=== PATIENT | male | born 1945 | race Caucasian/White ===

== ENCOUNTER → 2018-01-13 14:38 | Oncology outpatient (ONC) | payer MEDICARE, OTHER, SELFPAY ==
[2018-01-13 15:29] VITALS: BP 174/67; PULSE 52; RESP 18; TEMP 36.5; O2SAT 96
--- NOTE | 2018-01-14 13:32 | ONC.GENERIC ---
Diagnosis (1) Chronic renal impairment Diagnosis: 01/14/18 13:42 Mr. Day is a very pleasant 72-year-old male from [place], [place]. He is accompanied today by his . He has been kindly referred by Dr. Soliman for formal triage of an abnormal serum free light chain profile. History of Present Illness History Of Present Illness: 01/14/18 13:45 This gentleman's present illness probably dates back to July of 2017, when the patient was found to have a right kidney stone. A local urologist did a cystoscopy and was able to remove the 6 mm stone. The patient had a unilateral stent in for about 2 weeks duration. At the time, the patient denied being on any vitamin C supplements. Following that procedure, he had some follow-up blood work, which showed persistent elevation of his serum creatinine. In retrospect, this gentleman had a creatinine level of 2.2 dating back to 12/03/2016. His creatinine peaked at 4.1 on 07/15/2017. His most recent level from 11/28/2017 was 2.9. According to the patient, the exact cause of his persistent renal insufficiency is not clearly understood at this time. 01/14/18 13:51 On 12/04/2017, the patient was seen formally by Dr. Soliman, a local streets and buildings decorator. A serum free light chain assay was procured, showing elevation of the kappa free light chains at 87.6, elevation of the lambda free light chains at 31.9 and elevation of the kappa/lambda ratio at 2.75. A urine immunoelectrophoresis detected a tiny amount of abnormal protein. The hemoglobin level was 12.0. MCV was 88. Iron saturation was normal at 23. Serum iron was normal at 86. A M spike was not seen on a serum protein electrophoresis. Home Medications and Allergies Home Medications Medication Instructions Recorded Confirmed Type aspirin 81 mg PO QDAY #90 tab 06/04/17 01/09/18 Rx fluocinonide 0.05 % TOPICAL SEE INSTRUCTIONS 06/04/17 01/09/18 Rx #180 gm hydrochlorothiazide 50 mg PO QDAY #90 tab 06/04/17 01/09/18 Rx levothyroxine 88 mcg PO QDAY@0600 #90 tab 06/04/17 01/09/18 Rx potassium chloride [Klor-Con M20] 20 meq PO Q DAY #360 tab 06/04/17 01/09/18 Rx simvastatin 20 mg PO QDAY #90 tab 06/04/17 01/09/18 Rx terazosin 5 mg PO QDAY #90 cap 06/04/17 01/09/18 Rx Glucose: Home Monitoring Kit kit BID #1 08/18/17 01/09/18 Rx nifedipine 60 mg PO BID #180 tab 08/18/17 01/09/18 Rx Test Strips - Freestyle str NA BID #300 10/16/17 01/09/18 Rx hydralazine 50 mg PO BID #0 11/18/17 01/09/18 History ranitidine HCl 150 mg PO QDAY #0 11/18/17 01/09/18 History insulin syringe-needle U-100 0.3 #100 each 01/01/18 01/09/18 Rx mL 31 gauge x 12/24 insulin glargine (U-100) 100 30 unit SUBCUT QDAY #2 syr 01/06/18 01/09/18 Rx unit/mL (3 mL) subcutaneous pen hydrocodone 5 mg-acetaminophen 325 See Label Instructions PO Q6H PRN 01/09/18 Rx mg tablet PRN #20 tab pen needle, diabetic 31 gauge x #30 each 01/09/18 Rx 1/4 prednisone 20 mg tablet 30 mg PO DAILY #10 tab 01/09/18 Rx Allergies Allergy/AdvReac Type Severity Reaction Status Date / Time oxycodone [OXYCODONE] Allergy Mild nightmares Unverified 01/09/18 13:32 Past History Past Medical History: This gentleman's past medical history is quite extensive, and includes anemia, bilateral hip replacements surgery, psoriasis, chronic renal insufficiency, diabetes since 1994, history of gout, hyperlipidemia, hypertension since age 18, prior kidney stone as noted above, lumbar stenosis, neuropathy, sleep apnea and prior partial thyroidectomy, causing acquired hypothyroidism, under treatment. There is also a prior history of a left lung nodule. Social History: Mr. Day is and is accompanied today by his Katie. All 3 of their adult children are . 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 Family History: Patient's mother at age 63 from smoking related lung cancer. His father had a heart attack at age 77. One brother and 1 sister survive. They both have diabetes. This gentleman's 3 adult children are all . His 42 and 44-year-old sons both of heart attacks. His daughter from seizure activity age 37. Review of Systems Review of Systems: 1. General. No recent change in weight or appetite. He denies any recent fever, chills or night sweats. 2. HEENT. Chronic diminution in hearing. He has bilateral hearing aids. No current visual complaints. 3. Lungs. No recent complaints of cough or dyspnea. 4. Heart. History of hypertension, for the past 54 years. 5. GI. No history of gallbladder disease, hepatitis or peptic ulcer disease. 6. Rheumatologic. Prior left hip replacement surgery x2. Previous right hip replacement surgery. History of gout. 7. Endocrine. Adult onset diabetes mellitus. Currently on 88 mcg of Synthroid per day for hypothyroidism. 8. . Urinary frequency (I drink a lot a water). 9. Scan. Unremarkable. 10. Neurologic. Chronic bilateral leg weakness, secondary to his lower spinal stenosis. Exam Vital Signs: Vital Signs - 24 hr 01/13/18 15:29 Temperature 97.7 F Pulse Rate 52 L Respiratory Rate 18 Blood Pressure 174/67 H Pulse Oximetry 96 Exam: Blood pressure 174/67. Temperature 97.7?. Pulse rate 52. O2 saturation on room air was 96%. Weight 231 lb. The pupils were equal and reactive to light. There was no scleral icterus. The oropharynx was clear. There was no direct percussible spinal tenderness. There was no palpable rib cage tenderness. Both lungs were clear to auscultation and percussion. No pathologic lymphadenopathy was noted today in the pre or postauricular, neck, chin, supraclavicular or axillary areas. No gynecomastia. Heart sounds were fine. His abdomen was soft and nontender in all 4 quadrants. No perceived hepatomegaly. Minimal pretibial edema. Skin examination was unremarkable. Impression At this time, I strongly suspect that this gentleman's abnormal serum free light chain profile is entirely secondary to his persistent/moderately severe renal insufficiency. While it can be difficult to interpret [place]/Lambda ratios between 1.65 and 3, in the context of renal insufficiency, further investigation with a 24 urine protein electrophoresis and urine immunofixation generally helps to guide interpretation. If both of the subsequent studies are normal, and the patient has no other symptoms suggestive of a plasma cell dyscrasia, then the increased ratio is likely to be due to the renal insufficiency. It is quite common to see both the kappa and lambda free light chains elevated simultaneously in the face of renal insufficiency, due to both increased immune production and decreased renal clearance. In addition to the above urine testing, I have also requested a reticulocyte count, quantitative immunoglobulins, a baseline beta 2 microglobulin and a baseline erythropoietin level. I plan to be back in touch with this gentleman when the above results are available for review and discussion.
--- NOTE | 2018-01-14 13:42 | P.CONONC_ITS ---
Diagnosis (1) Chronic renal impairment Diagnosis: 01/14/18 13:42 Mr. Day is a very pleasant 72-year-old male from [place], [place]. He is accompanied today by his . He has been kindly referred by Dr. Soliman for formal triage of an abnormal serum free light chain profile. History of Present Illness History Of Present Illness: 01/14/18 13:45 This gentleman's present illness probably dates back to July of 2017, when the patient was found to have a right kidney stone. A local urologist did a cystoscopy and was able to remove the 6 mm stone. The patient had a unilateral stent in for about 2 weeks duration. At the time, the patient denied being on any vitamin C supplements. Following that procedure, he had some follow-up blood work, which showed persistent elevation of his serum creatinine. In retrospect, this gentleman had a creatinine level of 2.2 dating back to 2016. His creatinine peaked at 4.1 on 07/15/2017. His most recent level from 11/28/2017 was 2.9. According to the patient, the exact cause of his persistent renal insufficiency is not clearly understood at this time. 01/14/18 13:51 On 12/04/2017, the patient was seen formally by Dr. Soliman, a local inspector assemblies and installations. A serum free light chain assay was procured, showing elevation of the kappa free light chains at 87.6, elevation of the lambda free light chains at 31.9 and elevation of the kappa/lambda ratio at 2.75. A urine immunoelectrophoresis detected a tiny amount of abnormal protein. The hemoglobin level was 12.0. MCV was 88. Iron saturation was normal at 23. Serum iron was normal at 86. A M spike was not seen on a serum protein electrophoresis. Home Medications and Allergies Home Medications Medication Instructions Recorded Confirmed Type aspirin 81 mg PO QDAY #90 tab 06/04/17 01/09/18 Rx fluocinonide 0.05 % TOPICAL SEE INSTRUCTIONS 06/04/17 01/09/18 Rx #180 gm hydrochlorothiazide 50 mg PO QDAY #90 tab 06/04/17 01/09/18 Rx levothyroxine 88 mcg PO QDAY@0600 #90 tab 06/04/17 01/09/18 Rx potassium chloride [Klor-Con M20] 20 meq PO Q DAY #360 tab 06/04/17 01/09/18 Rx simvastatin 20 mg PO QDAY #90 tab 06/04/17 01/09/18 Rx terazosin 5 mg PO QDAY #90 cap 06/04/17 01/09/18 Rx Glucose: Home Monitoring Kit kit BID #1 08/18/17 01/09/18 Rx nifedipine 60 mg PO BID #180 tab 08/18/17 01/09/18 Rx Test Strips - Freestyle str NA BID #300 10/16/17 01/09/18 Rx hydralazine 50 mg PO BID #0 11/18/17 01/09/18 History ranitidine HCl 150 mg PO QDAY #0 11/18/17 01/09/18 History insulin syringe-needle U-100 0.3 #100 each 01/01/18 01/09/18 Rx mL 31 gauge x 12/24 insulin glargine (U-100) 100 30 unit SUBCUT QDAY #2 syr 01/06/18 01/09/18 Rx unit/mL (3 mL) subcutaneous pen hydrocodone 5 mg-acetaminophen 325 See Label Instructions PO Q6H PRN 01/09/18 Rx mg tablet PRN #20 tab pen needle, diabetic 31 gauge x #30 each 01/09/18 Rx 1/4 prednisone 20 mg tablet 30 mg PO DAILY #10 tab 01/09/18 Rx Allergies Allergy/AdvReac Type Severity Reaction Status Date / Time oxycodone [OXYCODONE] Allergy Mild nightmares Unverified 01/09/18 13:32 Past History Past Medical History: This gentleman's past medical history is quite extensive, and includes anemia, bilateral hip replacements surgery, psoriasis, chronic renal insufficiency, diabetes since 1994, history of gout, hyperlipidemia, hypertension since age 18 , prior kidney stone as noted above, lumbar stenosis, neuropathy, sleep apnea and prior partial thyroidectomy, causing acquired hypothyroidism, under treatment. There is also a prior history of a left lung nodule. Social History: Mr. Day is and is accompanied today by his Katie. All 3 of their adult children are . 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 Family History: Patient's mother at age 63 from smoking related lung cancer. His father had a heart attack at age 77. One brother and 1 sister survive. They both have diabetes. This gentleman's 3 adult children are all . His 42 and 44-year-old sons both of heart attacks. His daughter from seizure activity age 37. Review of Systems Review of Systems: 1. General. No recent change in weight or appetite. He denies any recent fever, chills or night sweats. 2. HEENT. Chronic diminution in hearing. He has bilateral hearing aids. No current visual complaints. 3. Lungs. No recent complaints of cough or dyspnea. 4. Heart. History of hypertension, for the past 54 years. 5. GI. No history of gallbladder disease, hepatitis or peptic ulcer disease. 6. Rheumatologic. Prior left hip replacement surgery x2. Previous right hip replacement surgery. History of gout. 7. Endocrine. Adult onset diabetes mellitus. Currently on 88 mcg of Synthroid per day for hypothyroidism. 8. . Urinary frequency (I drink a lot a water). 9. Scan. Unremarkable. 10. Neurologic. Chronic bilateral leg weakness, secondary to his lower spinal stenosis. Exam Vital Signs: Vital Signs - 24 hr 01/13/18 15:29 Temperature 97.7 F Pulse Rate 52 L Respiratory Rate 18 Blood Pressure 174/67 H Pulse Oximetry 96 Exam: Blood pressure 174/67. Temperature 97.7?. Pulse rate 52. O2 saturation on room air was 96%. Weight 231 lb. The pupils were equal and reactive to light. There was no scleral icterus. The oropharynx was clear. There was no direct percussible spinal tenderness. There was no palpable rib cage tenderness. Both lungs were clear to auscultation and percussion. No pathologic lymphadenopathy was noted today in the pre or postauricular, neck, chin, supraclavicular or axillary areas. No gynecomastia. Heart sounds were fine. His abdomen was soft and nontender in all 4 quadrants. No perceived hepatomegaly. Minimal pretibial edema. Skin examination was unremarkable. Impression At this time, I strongly suspect that this gentleman's abnormal serum free light chain profile is entirely secondary to his persistent/moderately severe renal insufficiency. While it can be difficult to interpret [place]/Lambda ratios between 1.65 and 3, in the context of renal insufficiency, further investigation with a 24 urine protein electrophoresis and urine immunofixation generally helps to guide interpretation. If both of the subsequent studies are normal, and the patient has no other symptoms suggestive of a plasma cell dyscrasia, then the increased ratio is likely to be due to the renal insufficiency. It is quite common to see both the kappa and lambda free light chains elevated simultaneously in the face of renal insufficiency, due to both increased immune production and decreased renal clearance. In addition to the above urine testing, I have also requested a reticulocyte count, quantitative immunoglobulins, a baseline beta 2 microglobulin and a baseline erythropoietin level. I plan to be back in touch with this gentleman when the above results are available for review and discussion.
== END ==
PROVIDERS: Family Provider Family Medicine; PCP Family Medicine; Visit Provider Internal Medicine Hematology & Oncology
DX: N28.9 Disorder of kidney and ureter, unspecified (principal)
CPT/HCPCS: 99205; 99215

== ENCOUNTER → 2018-01-15 10:56 | Outpatient (CLI) | payer MEDICARE, OTHER, SELFPAY ==
[2018-01-15 11:27] LABS: Reticulocyte Count, Percent 1.1 % (0.87-2.60)
[2018-01-17 13:26] LABS: Beta-2-Microglobulin 5.83 mg/L (< 2.52)
[2018-01-17 16:27] LABS: Immunoglobulin A 158 mg/dL (81-463); Immunoglobulin G, Quantitative 856 mg/dL (694-1618); Immunoglobulin M, Quantitative 80 mg/dL (48-271)
== END ==
PROVIDERS: Family Provider Family Medicine; PCP Family Medicine; Visit Provider Internal Medicine Hematology & Oncology
DX: E11.22 Type 2 diabetes mellitus with diabetic chronic kidney disease (principal); I12.9 Hypertensive chronic kidney disease with stage 1 through stage 4 chronic kidney disease, or unspecified chronic kidney disease; N18.9 Chronic kidney disease, unspecified
CPT/HCPCS: 36415; 82232; 82668; 82784; 85045

== ENCOUNTER → 2018-01-19 11:06 | Outpatient (CLI) | payer MEDICARE, OTHER, SELFPAY ==
[2018-01-21 14:00] LABS: Albumin 51 %; Protein, Total, 24 hr urine 589 mg/24 h (<150); Protein/ Creatinine Ratio 375 mg/g creat (< OR = 84); Total Volume 3100 mL
== END ==
PROVIDERS: Family Provider Family Medicine; PCP Family Medicine; Visit Provider Internal Medicine Hematology & Oncology
DX: E11.22 Type 2 diabetes mellitus with diabetic chronic kidney disease (principal); I12.9 Hypertensive chronic kidney disease with stage 1 through stage 4 chronic kidney disease, or unspecified chronic kidney disease; N18.9 Chronic kidney disease, unspecified
CPT/HCPCS: 84156; 84166; 86335

== ENCOUNTER → 2018-03-03 12:31 | Outpatient (CLI) | payer MEDICARE, OTHER, SELFPAY ==
[2018-03-03 12:53] LABS: Hematocrit 34.1 % (41-53); Hemoglobin 11.8 g/dL (13.5-17.5)
[2018-03-03 13:15] LABS: BUN Creatinine Ratio 12.4 (6-22); Blood Urea Nitrogen 36 mg/dL (9-20); Calcium 10.1 mg/dL (8.4-10.2); Carbon Dioxide 23 mmol/L (22-32); Chloride 104 mmol/L (98-107); Estimated Glomerular Filt Rate 21.4 mL/min (>60); Glucose 164 mg/dL (80-110); HEMOLYSIS < 15 (0-50); Potassium 3.8 mmol/L (3.4-5.1); Sodium 140 mmol/L (137-145)
[2018-03-03 14:52] LABS: Creatinine Urine Random 98.8 mg/dL; Protein (Total) Urine Random 41 mg/dL (0-12); Protein Creatinine Ratio Urine 0.41 GRAM/24H
== END ==
PROVIDERS: Family Provider Family Medicine; PCP Family Medicine; Visit Provider Student in an Organized Health Care Education/Training Program
DX: N05.9 Unspecified nephritic syndrome with unspecified morphologic changes (principal); D64.9 Anemia, unspecified; R80.9 Proteinuria, unspecified
CPT/HCPCS: 36415; 80048; 82570; 84156; 85014; 85018

== ENCOUNTER → 2018-05-14 11:08 | Outpatient (CLI) | payer MEDICARE, OTHER, SELFPAY ==
[2018-05-14 12:17] LABS: Hemoglobin A1C% w Est Avg Glu 6.1 % (4.0-6.0)
[2018-05-14 12:52] LABS: Alanine Aminotransferase 37 IU/L (21-72); Albumin 4.5 g/dL (3.5-5.0); Albumin Globulin Ratio 1.6 (1.0-2.8); Alkaline Phosphatase 99 U/L (38-126); Aspartate Aminotransferase 21 IU/L (17-59); BUN Creatinine Ratio 12.1 (6-22); Bilirubin Total 0.9 mg/dL (0.2-1.3); Blood Urea Nitrogen 41 mg/dL (9-20); Carbon Dioxide 22 mmol/L (22-32); Chloride 105 mmol/L (98-107); Estimated Glomerular Filt Rate 17.8 mL/min (>60); Globulin 2.8 g/dL (1.7-4.1); Glucose 117 mg/dL (80-110); HEMOLYSIS < 15 (0-50); Potassium 4.7 mmol/L (3.4-5.1); Sodium 145 mmol/L (137-145); Total Protein 7.3 g/dL (6.3-8.2)
== END ==
PROVIDERS: PCP Family Medicine; Visit Provider Family Medicine
DX: E11.9 Type 2 diabetes mellitus without complications (principal); I10 Essential (primary) hypertension; N17.9 Acute kidney failure, unspecified; N18.9 Chronic kidney disease, unspecified
CPT/HCPCS: 36415; 80053; 83036

== ENCOUNTER → 2018-06-01 13:15 | Outpatient (CLI) | payer MEDICARE, OTHER, SELFPAY ==
[2018-06-01 14:27] LABS: Hematocrit 36.4 % (41-53); Hemoglobin 12.5 g/dL (13.5-17.5)
[2018-06-01 14:33] LABS: HEMOLYSIS < 15 (0-50); Iron 57 ug/dL (49-181)
[2018-06-01 14:35] LABS: BUN Creatinine Ratio 13.5 (6-22); Blood Urea Nitrogen 46 mg/dL (9-20); Calcium 10.7 mg/dL (8.4-10.2); Carbon Dioxide 23 mmol/L (22-32); Chloride 106 mmol/L (98-107); Estimated Glomerular Filt Rate 17.8 mL/min (>60); Glucose 127 mg/dL (80-110); HEMOLYSIS < 15 (0-50); Potassium 4.6 mmol/L (3.4-5.1); Sodium 145 mmol/L (137-145)
[2018-06-01 14:42] LABS: Percent Iron Saturation 16 % (20-50); Total Iron Binding Capacity 356 ug/dL (261-462); Transferrin 302 mg/dL (206-381)
[2018-06-01 14:52] LABS: B Type Natriuretic Peptide 93.8 (<100)
[2018-06-01 15:10] LABS: Ferritin 25.8 ng/mL (17.9-464)
[2018-06-04 15:03] LABS: Parathyroid Hormone Int 84 pg/mL (14-64)
== END ==
PROVIDERS: Family Provider Family Medicine; PCP Family Medicine; Visit Provider Student in an Organized Health Care Education/Training Program
DX: N05.9 Unspecified nephritic syndrome with unspecified morphologic changes (principal); I50.32 Chronic diastolic (congestive) heart failure; D50.0 Iron deficiency anemia secondary to blood loss (chronic); D64.9 Anemia, unspecified; N25.81 Secondary hyperparathyroidism of renal origin
CPT/HCPCS: 36415; 80048; 82728; 83540; 83550; 83880; 83970; 85014; 85018

== ENCOUNTER → 2018-06-08 11:36 | Outpatient (CLI) | payer MEDICARE, OTHER, SELFPAY ==
[2018-06-08 13:43] LABS: BUN Creatinine Ratio 12.4 (6-22); Blood Urea Nitrogen 42 mg/dL (9-20); Calcium 10.4 mg/dL (8.4-10.2); Carbon Dioxide 22 mmol/L (22-32); Chloride 105 mmol/L (98-107); Estimated Glomerular Filt Rate 17.8 mL/min (>60); Glucose 137 mg/dL (80-110); HEMOLYSIS < 15 (0-50); Potassium 4.4 mmol/L (3.4-5.1); Sodium 142 mmol/L (137-145)
== END ==
PROVIDERS: Family Provider Family Medicine; PCP Family Medicine; Visit Provider Student in an Organized Health Care Education/Training Program
DX: N05.9 Unspecified nephritic syndrome with unspecified morphologic changes (principal)
CPT/HCPCS: 36415; 80048

== ENCOUNTER → 2018-06-18 12:27 | Outpatient (CLI) | payer MEDICARE, OTHER, SELFPAY ==
[2018-06-18 14:26] LABS: BUN Creatinine Ratio 13.2 (6-22); Blood Urea Nitrogen 37 mg/dL (9-20); Calcium 10.6 mg/dL (8.4-10.2); Carbon Dioxide 24 mmol/L (22-32); Chloride 104 mmol/L (98-107); Estimated Glomerular Filt Rate 22.3 mL/min (>60); Glucose 168 mg/dL (80-110); HEMOLYSIS < 15 (0-50); Potassium 4.3 mmol/L (3.4-5.1); Sodium 145 mmol/L (137-145)
== END ==
PROVIDERS: PCP Family Medicine; Visit Provider Student in an Organized Health Care Education/Training Program
DX: N05.9 Unspecified nephritic syndrome with unspecified morphologic changes (principal)
CPT/HCPCS: 36415; 80048

== ENCOUNTER → 2018-07-16 10:38 | Outpatient (CLI) | payer MEDICARE, OTHER, SELFPAY ==
[2018-07-16 11:59] LABS: Hematocrit 38.1 % (41-53); Hemoglobin 12.8 g/dL (13.5-17.5)
[2018-07-16 13:19] LABS: HEMOLYSIS < 15 (0-50); Iron 93 ug/dL (49-181)
[2018-07-16 13:24] LABS: BUN Creatinine Ratio 14.3 (6-22); Blood Urea Nitrogen 40 mg/dL (9-20); Calcium 10.5 mg/dL (8.4-10.2); Carbon Dioxide 20 mmol/L (22-32); Chloride 107 mmol/L (98-107); Estimated Glomerular Filt Rate 22.3 mL/min (>60); Glucose 179 mg/dL (80-110); HEMOLYSIS < 15 (0-50); Potassium 3.7 mmol/L (3.4-5.1); Sodium 144 mmol/L (137-145)
[2018-07-16 13:32] LABS: Percent Iron Saturation 24 % (20-50); Total Iron Binding Capacity 382 ug/dL (261-462); Transferrin 316 mg/dL (206-381)
[2018-07-16 13:57] LABS: Ferritin 21.7 ng/mL (17.9-464)
== END ==
PROVIDERS: PCP Family Medicine; Visit Provider Student in an Organized Health Care Education/Training Program
DX: N05.9 Unspecified nephritic syndrome with unspecified morphologic changes (principal); I50.32 Chronic diastolic (congestive) heart failure; D50.0 Iron deficiency anemia secondary to blood loss (chronic); D64.9 Anemia, unspecified
CPT/HCPCS: 36415; 80048; 82728; 83540; 83550; 83880; 85014; 85018

== ENCOUNTER → 2018-08-18 11:54 | Outpatient (CLI) | payer MEDICARE, OTHER, SELFPAY ==
[2018-08-18 12:55] LABS: B Type Natriuretic Peptide 101 (<100); BUN Creatinine Ratio 13.5 (6-22); Blood Urea Nitrogen 42 mg/dL (9-20); Calcium 10.6 mg/dL (8.4-10.2); Carbon Dioxide 21 mmol/L (22-32); Chloride 103 mmol/L (98-107); Estimated Glomerular Filt Rate 19.7 mL/min (>60); Glucose 144 mg/dL (80-110); HEMOLYSIS < 15 (0-50); Potassium 3.8 mmol/L (3.4-5.1); Sodium 140 mmol/L (137-145)
[2018-08-20 13:05] LABS: Parathyroid Hormone Int 112 pg/mL (14-64)
== END ==
PROVIDERS: Family Provider Family Medicine; PCP Family Medicine; Visit Provider Student in an Organized Health Care Education/Training Program
DX: N05.9 Unspecified nephritic syndrome with unspecified morphologic changes (principal); I50.32 Chronic diastolic (congestive) heart failure; N25.81 Secondary hyperparathyroidism of renal origin
CPT/HCPCS: 36415; 80048; 83880; 83970

== ENCOUNTER → 2018-09-17 11:52 | Outpatient (CLI) | payer MEDICARE, OTHER, SELFPAY | PROVIDERS: PCP Family Medicine; Visit Provider Family Medicine | DX: M25.539 Pain in unspecified wrist (principal); G56.01 Carpal tunnel syndrome, right upper limb; G56.02 Carpal tunnel syndrome, left upper limb; R20.2 Paresthesia of skin | CPT/HCPCS: 95885; 95911 ==

== ENCOUNTER → 2018-10-16 12:53 | Outpatient (CLI) | payer MEDICARE, OTHER, SELFPAY ==
[2018-10-16 13:35] LABS: Hematocrit 36.3 % (41-53); Hemoglobin 12.2 g/dL (13.5-17.5)
[2018-10-16 13:52] LABS: HEMOLYSIS < 15 (0-50); Iron 71 ug/dL (49-181)
[2018-10-16 13:55] LABS: BUN Creatinine Ratio 11.8 (6-22); Blood Urea Nitrogen 39 mg/dL (9-20); Calcium 8.6 mg/dL (8.4-10.2); Carbon Dioxide 25 mmol/L (22-32); Chloride 101 mmol/L (98-107); Estimated Glomerular Filt Rate 18.4 mL/min (>60); Glucose 151 mg/dL (80-110); HEMOLYSIS < 15 (0-50); Potassium 3.9 mmol/L (3.4-5.1); Sodium 140 mmol/L (137-145)
[2018-10-16 14:03] LABS: Percent Iron Saturation 20 % (20-50); Total Iron Binding Capacity 355 ug/dL (261-462); Transferrin 269 mg/dL (206-381)
[2018-10-16 14:28] LABS: Ferritin 39.8 ng/mL (17.9-464)
[2018-10-16 14:50] LABS: B Type Natriuretic Peptide < 100 (<100)
[2018-10-20 13:53] LABS: Parathyroid Hormone Int 103 pg/mL (14-64)
== END ==
PROVIDERS: PCP Family Medicine; Visit Provider Student in an Organized Health Care Education/Training Program
DX: N05.9 Unspecified nephritic syndrome with unspecified morphologic changes (principal); I50.32 Chronic diastolic (congestive) heart failure; D50.0 Iron deficiency anemia secondary to blood loss (chronic); D64.9 Anemia, unspecified; N25.81 Secondary hyperparathyroidism of renal origin
CPT/HCPCS: 36415; 80048; 82728; 83540; 83550; 83880; 83970; 85014; 85018

== ENCOUNTER → 2018-11-16 11:24 | Outpatient (CLI) | payer MEDICARE, OTHER, SELFPAY ==
[2018-11-16 12:29] LABS: B Type Natriuretic Peptide < 100 (<100)
[2018-11-16 12:34] LABS: BUN Creatinine Ratio 15.9 (6-22); Blood Urea Nitrogen 51 mg/dL (9-20); Calcium 8.6 mg/dL (8.4-10.2); Carbon Dioxide 21 mmol/L (22-32); Chloride 104 mmol/L (98-107); Glucose 145 mg/dL (80-110); HEMOLYSIS < 15 (0-50); Potassium 4.2 mmol/L (3.4-5.1); Sodium 139 mmol/L (137-145)
== END ==
PROVIDERS: PCP Family Medicine; Visit Provider Student in an Organized Health Care Education/Training Program
DX: I50.32 Chronic diastolic (congestive) heart failure (principal); N05.9 Unspecified nephritic syndrome with unspecified morphologic changes
CPT/HCPCS: 36415; 80048; 83880

== ENCOUNTER → 2019-01-11 10:56 | Outpatient (CLI) | payer MEDICARE, OTHER, SELFPAY ==
[2019-01-11 12:35] LABS: Add Manual Diff / Slide Review NO; Basophils Absolute Auto 100 /uL (0-100); Basophils Percent Auto 0.9 % (0-2); Eosinophils Absolute Auto 200 /uL (0-450); Eosinophils Percent Auto 2.7 % (2-4); Hematocrit 37.8 % (41-53); Lymphocytes Absolute Auto 700 /uL (1100-4500); Lymphocytes Percent Auto 11.8 % (25-40); Mean Corpuscular HGB Conc 34.4 % (30-36); Mean Corpuscular Hemoglobin 31.1 PG (26-34); Mean Corpuscular Volume 90.5 fL (80-100); Monocytes Absolute Auto 600 /uL (0-900); Monocytes Percent Auto 10.7 % (3-14); Neutrophils Absolute Auto 4400 /uL (1500-7000); Neutrophils Percent Auto 73.9 % (50-75); Platelet Count 227 X10^3/uL (150-400); Red Blood Cell Count 4.18 X10^6/uL (4.5-5.9); White Blood Cell Count 5.9 X10^3/uL (4.5-11.0)
[2019-01-11 12:44] LABS: B Type Natriuretic Peptide < 100 (<100)
[2019-01-11 12:58] LABS: Albumin 4.6 g/dL (3.5-5.0); BUN Creatinine Ratio 15.4 (6-22); Blood Urea Nitrogen 54 mg/dL (9-20); Carbon Dioxide 22 mmol/L (22-32); Chloride 103 mmol/L (98-107); Estimated Glomerular Filt Rate 17.2 mL/min (>60); Glucose 163 mg/dL (80-110); HEMOLYSIS < 15 (0-50); Phosphorous 4.7 mg/dL (2.3-3.7); Potassium 4.9 mmol/L (3.4-5.1); Sodium 140 mmol/L (137-145)
[2019-01-14 14:45] LABS: Parathyroid Hormone Int 52 pg/mL (14-64)
== END ==
PROVIDERS: Family Provider Family Medicine; PCP Family Medicine; Visit Provider Student in an Organized Health Care Education/Training Program
DX: I50.32 Chronic diastolic (congestive) heart failure (principal); N18.4 Chronic kidney disease, stage 4 (severe); E21.1 Secondary hyperparathyroidism, not elsewhere classified; D63.1 Anemia in chronic kidney disease
CPT/HCPCS: 36415; 80069; 83880; 83970; 85025

== ENCOUNTER → 2019-03-08 12:48 | Outpatient (CLI) | payer MEDICARE, OTHER, SELFPAY ==
[2019-03-08 13:41] LABS: Hematocrit 38.9 % (41-53)
[2019-03-08 14:57] LABS: BUN Creatinine Ratio 15.6 (6-22); Blood Urea Nitrogen 56 mg/dL (9-20); Carbon Dioxide 20 mmol/L (22-32); Chloride 104 mmol/L (98-107); Estimated Glomerular Filt Rate 16.6 mL/min (>60); Glucose 165 mg/dL (80-110); HEMOLYSIS < 15 (0-50); Potassium 4.8 mmol/L (3.4-5.1); Sodium 141 mmol/L (137-145)
[2019-03-10 12:27] LABS: Parathyroid Hormone Int 91 pg/mL (14-64)
== END ==
PROVIDERS: Family Provider Family Medicine; PCP Family Medicine; Visit Provider Student in an Organized Health Care Education/Training Program
DX: N05.9 Unspecified nephritic syndrome with unspecified morphologic changes (principal); D64.9 Anemia, unspecified; N25.81 Secondary hyperparathyroidism of renal origin
CPT/HCPCS: 36415; 80048; 83970; 85014; 85018

== ENCOUNTER → 2019-04-02 11:15 | Outpatient (CLI) | payer MEDICARE, OTHER, SELFPAY ==
[2019-04-02 12:31] LABS: Hemoglobin A1C% w Est Avg Glu 5.5 % (4.0-6.0)
[2019-04-02 13:16] LABS: Thyroid Stimulating Hormone 0.71 uIU/mL (0.47-4.68)
== END ==
PROVIDERS: Family Provider Family Medicine; PCP Family Medicine; Visit Provider Internal Medicine Endocrinology, Diabetes & Metabolism
DX: E11.9 Type 2 diabetes mellitus without complications (principal); N17.9 Acute kidney failure, unspecified; N18.9 Chronic kidney disease, unspecified
CPT/HCPCS: 36415; 83036; 84443

== ENCOUNTER → 2019-05-07 12:31 | Outpatient (CLI) | payer MEDICARE, OTHER, SELFPAY ==
[2019-05-07 13:18] LABS: Hematocrit 36.5 % (41-53); Hemoglobin 12.3 g/dL (13.5-17.5)
[2019-05-07 13:38] LABS: BUN Creatinine Ratio 14.3 (6-22); Blood Urea Nitrogen 57 mg/dL (9-20); Calcium 9.4 mg/dL (8.4-10.2); Carbon Dioxide 19 mmol/L (22-32); Chloride 103 mmol/L (98-107); Estimated Glomerular Filt Rate 14.7 mL/min (>60); Glucose 108 mg/dL (80-110); HEMOLYSIS < 15 (0-50); Potassium 5.2 mmol/L (3.4-5.1); Sodium 139 mmol/L (137-145)
[2019-05-11 14:56] LABS: Parathyroid Hormone Int 21 pg/mL (14-64)
== END ==
PROVIDERS: Family Provider Family Medicine; PCP Family Medicine; Visit Provider Student in an Organized Health Care Education/Training Program
DX: N05.9 Unspecified nephritic syndrome with unspecified morphologic changes (principal); D64.9 Anemia, unspecified; N25.81 Secondary hyperparathyroidism of renal origin
CPT/HCPCS: 36415; 80048; 83970; 85014; 85018

== ENCOUNTER → 2019-07-12 12:53 | Outpatient (CLI) | payer MEDICARE, OTHER, SELFPAY ==
[2019-07-12 13:27] LABS: Hematocrit 35.5 % (41-53); Hemoglobin 11.9 g/dL (13.5-17.5)
[2019-07-12 14:19] LABS: BUN Creatinine Ratio 15.4 (6-22); Blood Urea Nitrogen 60 mg/dL (9-20); Carbon Dioxide 22 mmol/L (22-32); Chloride 105 mmol/L (98-107); Estimated Glomerular Filt Rate 15.1 mL/min (>60); Glucose 105 mg/dL (80-110); HEMOLYSIS < 15 (0-50); Potassium 4.1 mmol/L (3.4-5.1); Sodium 141 mmol/L (137-145)
[2019-07-15 14:29] LABS: Parathyroid Hormone Int 27 pg/mL (14-64)
== END ==
PROVIDERS: PCP Family Medicine; Visit Provider Student in an Organized Health Care Education/Training Program
DX: N05.9 Unspecified nephritic syndrome with unspecified morphologic changes (principal); D64.9 Anemia, unspecified; N25.81 Secondary hyperparathyroidism of renal origin
CPT/HCPCS: 36415; 80048; 83970; 85014; 85018

== ENCOUNTER → 2019-09-01 16:12 | Outpatient (CLI) | payer MEDICARE, OTHER, SELFPAY ==
[2019-09-01 17:42] LABS: Hematocrit 33.1 % (41-53); Hemoglobin 11.2 g/dL (13.5-17.5)
[2019-09-01 18:07] LABS: BUN Creatinine Ratio 16.2 (6-22); Blood Urea Nitrogen 63 mg/dL (9-20); Calcium 10.5 mg/dL (8.4-10.2); Carbon Dioxide 20 mmol/L (22-32); Chloride 103 mmol/L (98-107); Estimated Glomerular Filt Rate 15.1 mL/min (>60); Glucose 120 mg/dL (80-110); HEMOLYSIS < 15 (0-50); Potassium 4.8 mmol/L (3.4-5.1); Sodium 139 mmol/L (137-145)
[2019-09-04 14:47] LABS: Parathyroid Hormone Int 85 pg/mL (14-64)
== END ==
PROVIDERS: PCP Family Medicine; Visit Provider Student in an Organized Health Care Education/Training Program
DX: N05.9 Unspecified nephritic syndrome with unspecified morphologic changes (principal); D64.9 Anemia, unspecified; N25.81 Secondary hyperparathyroidism of renal origin
CPT/HCPCS: 36415; 80048; 83970; 85014; 85018

== ENCOUNTER → 2019-11-12 13:42 | Outpatient (CLI) | payer MEDICARE, OTHER, SELFPAY ==
[2019-11-12 14:44] LABS: Hematocrit 36.7 % (41-53); Hemoglobin 12.5 g/dL (13.5-17.5)
[2019-11-12 15:17] LABS: BUN Creatinine Ratio 14.3 (6-22); Blood Urea Nitrogen 58 mg/dL (9-20); Calcium 11.3 mg/dL (8.4-10.2); Carbon Dioxide 19 mmol/L (22-32); Chloride 105 mmol/L (98-107); Estimated Glomerular Filt Rate 14.4 mL/min (>60); Glucose 101 mg/dL (80-110); HEMOLYSIS < 15 (0-50); Potassium 4.8 mmol/L (3.4-5.1); Sodium 138 mmol/L (137-145)
[2019-11-13 07:07] LABS: Parathyroid Hormone Int 116 pg/mL (15-65)
== END ==
PROVIDERS: PCP Family Medicine; Referring Provider Student in an Organized Health Care Education/Training Program; Visit Provider Student in an Organized Health Care Education/Training Program
DX: N05.9 Unspecified nephritic syndrome with unspecified morphologic changes (principal); D64.9 Anemia, unspecified; N25.81 Secondary hyperparathyroidism of renal origin
CPT/HCPCS: 36415; 80048; 83970; 85014; 85018

== ENCOUNTER → 2019-12-13 14:45 | Outpatient (CLI) | payer MEDICARE, OTHER, SELFPAY ==
[2019-12-13 15:15] LABS: Hematocrit 37.1 % (41-53); Hemoglobin 12.4 g/dL (13.5-17.5)
[2019-12-13 15:29] LABS: BUN Creatinine Ratio 11.1 (6-22); Blood Urea Nitrogen 45 mg/dL (9-20); Calcium 10.3 mg/dL (8.4-10.2); Carbon Dioxide 20 mmol/L (22-32); Chloride 106 mmol/L (98-107); Estimated Glomerular Filt Rate 14.4 mL/min (>60); Glucose 186 mg/dL (80-110); HEMOLYSIS < 15 (0-50); Potassium 4.6 mmol/L (3.4-5.1); Sodium 138 mmol/L (137-145)
[2019-12-14 08:21] LABS: Parathyroid Hormone Int 160 pg/mL (15-65)
== END ==
PROVIDERS: PCP Family Medicine; Referring Provider Student in an Organized Health Care Education/Training Program; Visit Provider Student in an Organized Health Care Education/Training Program
DX: N05.9 Unspecified nephritic syndrome with unspecified morphologic changes (principal); D64.9 Anemia, unspecified; N25.81 Secondary hyperparathyroidism of renal origin
CPT/HCPCS: 36415; 80048; 83970; 85014; 85018

== ENCOUNTER → 2020-01-26 13:39 | Outpatient (CLI) | payer MEDICARE, OTHER, SELFPAY ==
[2020-01-26 15:13] LABS: Hematocrit 38.5 % (41-53); Hemoglobin 13.3 g/dL (13.5-17.5)
[2020-01-26 15:47] LABS: BUN Creatinine Ratio 12.3 (6-22); Blood Urea Nitrogen 58 mg/dL (9-20); Calcium 10.9 mg/dL (8.4-10.2); Carbon Dioxide 23 mmol/L (22-32); Chloride 105 mmol/L (98-107); Estimated Glomerular Filt Rate 12.1 mL/min (>60); Glucose 129 mg/dL (80-110); HEMOLYSIS < 15 (0-50); Potassium 4.9 mmol/L (3.4-5.1); Sodium 140 mmol/L (137-145)
[2020-01-27 07:09] LABS: Parathyroid Hormone Int 136 pg/mL (15-65)
== END ==
PROVIDERS: PCP Family Medicine; Referring Provider Student in an Organized Health Care Education/Training Program; Visit Provider Student in an Organized Health Care Education/Training Program
DX: N05.9 Unspecified nephritic syndrome with unspecified morphologic changes (principal); D64.9 Anemia, unspecified; N25.81 Secondary hyperparathyroidism of renal origin
CPT/HCPCS: 36415; 80048; 83970; 85014; 85018

== ENCOUNTER → 2020-02-24 12:03 | Outpatient (CLI) | payer MEDICARE, OTHER, SELFPAY ==
[2020-02-24 13:40] LABS: Hematocrit 38.6 % (41-53); Hemoglobin 13.1 g/dL (13.5-17.5)
[2020-02-24 14:16] LABS: BUN Creatinine Ratio 11.4 (6-22); Blood Urea Nitrogen 55 mg/dL (9-20); Calcium 11.1 mg/dL (8.4-10.2); Carbon Dioxide 21 mmol/L (22-32); Chloride 106 mmol/L (98-107); Estimated Glomerular Filt Rate 11.8 mL/min (>60); Glucose 129 mg/dL (80-110); HEMOLYSIS < 15 (0-50); Sodium 139 mmol/L (137-145)
== END ==
PROVIDERS: PCP Family Medicine; Referring Provider Student in an Organized Health Care Education/Training Program; Visit Provider Student in an Organized Health Care Education/Training Program
DX: N05.9 Unspecified nephritic syndrome with unspecified morphologic changes (principal); D64.9 Anemia, unspecified
CPT/HCPCS: 36415; 80048; 85014; 85018

== ENCOUNTER → 2020-02-29 12:44 | Outpatient (CLI) | payer MEDICARE, OTHER, SELFPAY ==
[2020-03-01 16:08] LABS: Free Kappa Lt Chains, Serum 115.3 mg/L (3.3-19.4); Free Lambda Lt Chains,Serum 41.7 mg/L (5.7-26.3)
[2020-03-02 09:09] LABS: Albumin 3.8 g/dL (2.9-4.4); Alpha-1-Globulin 0.3 g/dL (0.0-0.4); Alpha-2-Globulin 0.8 g/dL (0.4-1.0); Gamma Globulin 0.9 g/dL (0.4-1.8); Globulin Total 2.9 g/dL (2.2-3.9); Protein, Total 6.7 g/dL (6.0-8.5)
[2020-03-03 09:08] LABS: Immunoglobulin A, Serum 165 mg/dL (61-437); Immunoglobulin G,Serum 858 mg/dL (603-1613); Immunoglobulin M, Serum 80 mg/dL (15-143)
[2020-03-03 14:08] LABS: Alpha-1 Globulin, Ur 3.9 % (.); Beta Globulin, Ur 27.3 % (.); Gamma Globulin, Ur 16.5 % (.); M-Spike % Not Observed % (Not Observed)
== END ==
PROVIDERS: PCP Family Medicine; Referring Provider Student in an Organized Health Care Education/Training Program; Visit Provider Student in an Organized Health Care Education/Training Program
DX: R80.9 Proteinuria, unspecified (principal); D47.2 Monoclonal gammopathy
CPT/HCPCS: 36415; 82784; 83883; 84155; 84156; 84165; 84166; 86334; 86335

== ENCOUNTER → 2020-03-30 11:00 | Outpatient (CLI) | payer MEDICARE, OTHER, SELFPAY ==
[2020-03-30 12:54] LABS: Hematocrit 35.1 % (41-53); Hemoglobin 11.7 g/dL (13.5-17.5)
[2020-03-30 13:25] LABS: BUN Creatinine Ratio 10.1 (6-22); Blood Urea Nitrogen 51 mg/dL (9-20); Carbon Dioxide 20 mmol/L (22-32); Chloride 106 mmol/L (98-107); Estimated Glomerular Filt Rate 11.2 mL/min (>60); Glucose 118 mg/dL (80-110); HEMOLYSIS < 15 (0-50); Potassium 4.6 mmol/L (3.4-5.1); Sodium 139 mmol/L (137-145)
[2020-03-31 10:08] LABS: Parathyroid Hormone Int 155 pg/mL (15-65)
== END ==
PROVIDERS: PCP Family Medicine; Referring Provider Student in an Organized Health Care Education/Training Program; Visit Provider Student in an Organized Health Care Education/Training Program
DX: N05.9 Unspecified nephritic syndrome with unspecified morphologic changes (principal); D64.9 Anemia, unspecified; N25.81 Secondary hyperparathyroidism of renal origin
CPT/HCPCS: 36415; 80048; 83970; 85014; 85018

== ENCOUNTER → 2020-05-04 12:49 | Outpatient (CLI) | payer MEDICARE, OTHER, SELFPAY ==
[2020-05-04 13:52] LABS: Hematocrit 35.1 % (41-53); Hemoglobin 11.7 g/dL (13.5-17.5)
[2020-05-04 14:14] LABS: BUN Creatinine Ratio 9.5 (6-22); Blood Urea Nitrogen 52 mg/dL (9-20); Calcium 10.5 mg/dL (8.4-10.2); Carbon Dioxide 21 mmol/L (22-32); Chloride 105 mmol/L (98-107); Estimated Glomerular Filt Rate 10.2 mL/min (>60); Glucose 150 mg/dL (80-110); HEMOLYSIS < 15 (0-50); Sodium 140 mmol/L (137-145)
[2020-05-05 07:09] LABS: Parathyroid Hormone Int 116 pg/mL (15-65)
== END ==
PROVIDERS: PCP Family Medicine; Referring Provider Student in an Organized Health Care Education/Training Program; Visit Provider Student in an Organized Health Care Education/Training Program
DX: N05.9 Unspecified nephritic syndrome with unspecified morphologic changes (principal); D64.9 Anemia, unspecified; N25.81 Secondary hyperparathyroidism of renal origin
CPT/HCPCS: 36415; 80048; 83970; 85014; 85018

== ENCOUNTER → 2020-06-01 12:36 | Outpatient (CLI) | payer MEDICARE, OTHER, SELFPAY ==
[2020-06-01 13:33] LABS: Hemoglobin 11.9 g/dL (13.5-17.5)
[2020-06-01 14:10] LABS: BUN Creatinine Ratio 9.8 (6-22); Blood Urea Nitrogen 56 mg/dL (9-20); Calcium 10.3 mg/dL (8.4-10.2); Carbon Dioxide 24 mmol/L (22-32); Chloride 104 mmol/L (98-107); Estimated Glomerular Filt Rate 9.7 mL/min (>60); Glucose 159 mg/dL (80-110); HEMOLYSIS < 15 (0-50); Potassium 4.6 mmol/L (3.4-5.1); Sodium 140 mmol/L (137-145)
[2020-06-02 06:13] LABS: Parathyroid Hormone Int 123 pg/mL (15-65)
== END ==
PROVIDERS: PCP Family Medicine; Referring Provider Family Medicine; Visit Provider Student in an Organized Health Care Education/Training Program
DX: N05.9 Unspecified nephritic syndrome with unspecified morphologic changes (principal); D64.9 Anemia, unspecified; N25.81 Secondary hyperparathyroidism of renal origin
CPT/HCPCS: 36415; 80048; 83970; 85014; 85018

== ENCOUNTER → 2020-07-04 14:33 | Outpatient (CLI) | payer MEDICARE, OTHER, SELFPAY ==
[2020-07-04 14:55] LABS: Hematocrit 35.3 % (41-53); Hemoglobin 11.8 g/dL (13.5-17.5)
[2020-07-04 16:03] LABS: Blood Urea Nitrogen 53 mg/dL (9-20); Calcium 10.6 mg/dL (8.4-10.2); Carbon Dioxide 23 mmol/L (22-32); Chloride 104 mmol/L (98-107); Estimated Glomerular Filt Rate 9.3 mL/min (>60); Glucose 136 mg/dL (80-110); HEMOLYSIS < 15 (0-50); Potassium 4.5 mmol/L (3.4-5.1); Sodium 139 mmol/L (137-145)
== END ==
PROVIDERS: PCP Family Medicine; Referring Provider Student in an Organized Health Care Education/Training Program; Visit Provider Student in an Organized Health Care Education/Training Program
DX: N05.9 Unspecified nephritic syndrome with unspecified morphologic changes (principal); D64.9 Anemia, unspecified
CPT/HCPCS: 36415; 80048; 85014; 85018

== ENCOUNTER → 2020-08-09 15:19 | Outpatient (CLI) | payer MEDICARE, OTHER, SELFPAY ==
[2020-08-09 15:56] LABS: Hematocrit 35.1 % (41-53); Hemoglobin 11.7 g/dL (13.5-17.5)
[2020-08-09 16:07] LABS: BUN Creatinine Ratio 8.8 (6-22); Blood Urea Nitrogen 50 mg/dL (9-20); Calcium 10.2 mg/dL (8.4-10.2); Carbon Dioxide 26 mmol/L (22-32); Chloride 107 mmol/L (98-107); Estimated Glomerular Filt Rate 9.8 mL/min (>60); Glucose 118 mg/dL (80-110); HEMOLYSIS < 15 (0-50); Potassium 5.3 mmol/L (3.4-5.1); Sodium 143 mmol/L (137-145)
[2020-08-10 04:39] LABS: Fructosamine 299 umol/L (0-285)
[2020-08-10 07:10] LABS: Parathyroid Hormone Int 193 pg/mL (15-65)
== END ==
PROVIDERS: PCP Family Medicine; Referring Provider Student in an Organized Health Care Education/Training Program; Visit Provider Internal Medicine Endocrinology, Diabetes & Metabolism
DX: N05.9 Unspecified nephritic syndrome with unspecified morphologic changes (principal); E11.22 Type 2 diabetes mellitus with diabetic chronic kidney disease; D64.9 Anemia, unspecified; N25.81 Secondary hyperparathyroidism of renal origin; N18.5 Chronic kidney disease, stage 5; Z79.4 Long term (current) use of insulin
CPT/HCPCS: 36415; 80048; 82985; 83970; 85014; 85018

== ENCOUNTER → 2020-08-14 13:54 | Outpatient (CLI) | payer MEDICARE, OTHER, SELFPAY ==
[2020-08-14 14:34] LABS: BUN Creatinine Ratio 9.2 (6-22); Blood Urea Nitrogen 48 mg/dL (9-20); Carbon Dioxide 23 mmol/L (22-32); Chloride 104 mmol/L (98-107); Estimated Glomerular Filt Rate 10.7 mL/min (>60); Glucose 142 mg/dL (80-110); HEMOLYSIS < 15 (0-50); Potassium 4.4 mmol/L (3.4-5.1); Sodium 138 mmol/L (137-145)
== END ==
PROVIDERS: PCP Family Medicine; Referring Provider Student in an Organized Health Care Education/Training Program; Visit Provider Student in an Organized Health Care Education/Training Program
DX: N05.9 Unspecified nephritic syndrome with unspecified morphologic changes (principal)
CPT/HCPCS: 36415; 80048

== ENCOUNTER → 2020-09-11 13:25 | Outpatient (CLI) | payer MEDICARE, OTHER, SELFPAY ==
[2020-09-11 14:14] LABS: Hematocrit 34.1 % (41-53); Hemoglobin 11.7 g/dL (13.5-17.5)
[2020-09-11 14:27] LABS: BUN Creatinine Ratio 10.4 (6-22); Blood Urea Nitrogen 50 mg/dL (9-20); Calcium 10.3 mg/dL (8.4-10.2); Carbon Dioxide 22 mmol/L (22-32); Chloride 105 mmol/L (98-107); Estimated Glomerular Filt Rate 11.8 mL/min (>60); Glucose 197 mg/dL (80-110); HEMOLYSIS < 15 (0-50); Potassium 3.7 mmol/L (3.4-5.1); Sodium 139 mmol/L (137-145)
[2020-09-12 08:08] LABS: Parathyroid Hormone Int 208 pg/mL (15-65)
== END ==
PROVIDERS: PCP Family Medicine; Referring Provider Student in an Organized Health Care Education/Training Program; Visit Provider Student in an Organized Health Care Education/Training Program
DX: N05.9 Unspecified nephritic syndrome with unspecified morphologic changes (principal); D64.9 Anemia, unspecified; N25.81 Secondary hyperparathyroidism of renal origin
CPT/HCPCS: 36415; 80048; 83970; 85014; 85018

== ENCOUNTER → 2020-10-16 12:38 | Outpatient (CLI) | payer MEDICARE, OTHER, SELFPAY ==
[2020-10-16 13:20] LABS: Hematocrit 36.3 % (41-53); Hemoglobin 12.2 g/dL (13.5-17.5)
[2020-10-16 13:44] LABS: BUN Creatinine Ratio 10.5 (6-22); Blood Urea Nitrogen 54 mg/dL (9-20); Calcium 10.6 mg/dL (8.4-10.2); Carbon Dioxide 24 mmol/L (22-32); Chloride 103 mmol/L (98-107); Glucose 113 mg/dL (80-110); HEMOLYSIS < 15 (0-50); Potassium 4.1 mmol/L (3.4-5.1); Sodium 139 mmol/L (137-145)
[2020-10-17 07:10] LABS: Parathyroid Hormone Int 175 pg/mL (15-65)
== END ==
PROVIDERS: PCP Family Medicine; Referring Provider Student in an Organized Health Care Education/Training Program; Visit Provider Student in an Organized Health Care Education/Training Program
DX: N05.9 Unspecified nephritic syndrome with unspecified morphologic changes (principal); D64.9 Anemia, unspecified; N25.81 Secondary hyperparathyroidism of renal origin
CPT/HCPCS: 36415; 80048; 83970; 85014; 85018

== ENCOUNTER → 2020-11-27 11:40 | Outpatient (CLI) | payer MEDICARE, OTHER, SELFPAY ==
[2020-11-27 12:47] LABS: Hematocrit 36.1 % (41-53); Hemoglobin 12.2 g/dL (13.5-17.5)
[2020-11-27 12:58] LABS: Blood Urea Nitrogen 59 mg/dL (9-20); Calcium 10.3 mg/dL (8.4-10.2); Carbon Dioxide 21 mmol/L (22-32); Chloride 105 mmol/L (98-107); Estimated Glomerular Filt Rate 12.7 mL/min (>60); Glucose 166 mg/dL (80-110); HEMOLYSIS < 15 (0-50); Potassium 4.6 mmol/L (3.4-5.1); Sodium 139 mmol/L (137-145)
[2020-11-28 07:41] LABS: Parathyroid Hormone Int 289 pg/mL (15-65)
== END ==
PROVIDERS: PCP Family Medicine; Referring Provider Student in an Organized Health Care Education/Training Program; Visit Provider Student in an Organized Health Care Education/Training Program
DX: N05.9 Unspecified nephritic syndrome with unspecified morphologic changes (principal); D64.9 Anemia, unspecified; N25.81 Secondary hyperparathyroidism of renal origin
CPT/HCPCS: 36415; 80048; 83970; 85014; 85018

== ENCOUNTER → 2021-01-05 13:12 | Outpatient (CLI) | payer MEDICARE, OTHER, SELFPAY ==
[2021-01-05 14:00] LABS: Hematocrit 37.3 % (41-53); Hemoglobin 12.4 g/dL (13.5-17.5)
[2021-01-05 14:10] LABS: BUN Creatinine Ratio 8.9 (6-22); Blood Urea Nitrogen 48 mg/dL (9-20); Calcium 10.4 mg/dL (8.4-10.2); Carbon Dioxide 18 mmol/L (22-32); Chloride 107 mmol/L (98-107); Estimated Glomerular Filt Rate 10.3 mL/min (>60); Glucose 162 mg/dL (80-110); HEMOLYSIS < 15 (0-50); Potassium 4.9 mmol/L (3.4-5.1); Sodium 139 mmol/L (137-145)
[2021-01-06 05:42] LABS: Parathyroid Hormone Int 252 pg/mL (15-65)
== END ==
PROVIDERS: PCP Family Medicine; Referring Provider Student in an Organized Health Care Education/Training Program; Visit Provider Student in an Organized Health Care Education/Training Program
DX: N05.9 Unspecified nephritic syndrome with unspecified morphologic changes (principal); D64.9 Anemia, unspecified; N25.81 Secondary hyperparathyroidism of renal origin
CPT/HCPCS: 36415; 80048; 83970; 85014; 85018

== ENCOUNTER → 2021-02-16 12:53 | Outpatient (CLI) | payer MEDICARE, OTHER, SELFPAY ==
[2021-02-16 14:46] LABS: Hematocrit 36.5 % (41-53); Hemoglobin 12.4 g/dL (13.5-17.5)
[2021-02-16 15:03] LABS: BUN Creatinine Ratio 10.3 (6-22); Blood Urea Nitrogen 54 mg/dL (9-20); Calcium 10.1 mg/dL (8.4-10.2); Carbon Dioxide 20 mmol/L (22-32); Chloride 108 mmol/L (98-107); Estimated Glomerular Filt Rate 10.7 mL/min (>60); Glucose 153 mg/dL (80-110); HEMOLYSIS < 15 (0-50); Potassium 4.8 mmol/L (3.4-5.1); Sodium 142 mmol/L (137-145)
[2021-02-17 10:50] LABS: Parathyroid Hormone Int 267 pg/mL (15-65)
== END ==
PROVIDERS: PCP Family Medicine; Referring Provider Student in an Organized Health Care Education/Training Program; Visit Provider Student in an Organized Health Care Education/Training Program
DX: N05.9 Unspecified nephritic syndrome with unspecified morphologic changes (principal); D64.9 Anemia, unspecified; N25.81 Secondary hyperparathyroidism of renal origin
CPT/HCPCS: 36415; 80048; 83970; 85014; 85018

== ENCOUNTER → 2021-03-29 13:55 | Outpatient (CLI) | payer MEDICARE, OTHER, SELFPAY ==
[2021-03-29 14:31] LABS: Hematocrit 38.1 % (41-53); Hemoglobin 12.6 g/dL (13.5-17.5)
[2021-03-29 14:50] LABS: BUN Creatinine Ratio 11.2 (6-22); Blood Urea Nitrogen 51 mg/dL (9-20); Calcium 10.3 mg/dL (8.4-10.2); Carbon Dioxide 19 mmol/L (22-32); Chloride 109 mmol/L (98-107); Estimated Glomerular Filt Rate 12.5 mL/min (>60); Glucose 156 mg/dL (80-110); HEMOLYSIS < 15 (0-50); Potassium 5.1 mmol/L (3.4-5.1); Sodium 140 mmol/L (137-145)
== END ==
PROVIDERS: PCP Family Medicine; Referring Provider Student in an Organized Health Care Education/Training Program; Visit Provider Student in an Organized Health Care Education/Training Program
DX: N05.9 Unspecified nephritic syndrome with unspecified morphologic changes (principal); D64.9 Anemia, unspecified
CPT/HCPCS: 36415; 80048; 85014; 85018

== ENCOUNTER → 2021-05-10 13:40 | Outpatient (CLI) | payer MEDICARE, OTHER, SELFPAY ==
[2021-05-10 14:48] LABS: Hematocrit 38.2 % (41-53); Hemoglobin 12.5 g/dL (13.5-17.5)
[2021-05-10 15:23] LABS: BUN Creatinine Ratio 10.5 (6-22); Blood Urea Nitrogen 53 mg/dL (9-20); Calcium 10.2 mg/dL (8.4-10.2); Carbon Dioxide 22 mmol/L (22-32); Chloride 107 mmol/L (98-107); Estimated Glomerular Filt Rate 11.2 mL/min (>60); Glucose 198 mg/dL (80-110); HEMOLYSIS < 15 (0-50); Potassium 5.3 mmol/L (3.4-5.1); Sodium 143 mmol/L (137-145)
== END ==
PROVIDERS: PCP Family Medicine; Referring Provider Student in an Organized Health Care Education/Training Program; Visit Provider Student in an Organized Health Care Education/Training Program
DX: N05.9 Unspecified nephritic syndrome with unspecified morphologic changes (principal); D64.9 Anemia, unspecified
CPT/HCPCS: 36415; 80048; 85014; 85018

== ENCOUNTER → 2021-05-14 12:52 | Outpatient (CLI) | payer MEDICARE, OTHER, SELFPAY ==
[2021-05-14 13:43] LABS: HEMOLYSIS < 15 (0-50); Potassium 4.1 mmol/L (3.4-5.1)
== END ==
PROVIDERS: PCP Family Medicine; Referring Provider Student in an Organized Health Care Education/Training Program; Visit Provider Student in an Organized Health Care Education/Training Program
DX: E87.5 Hyperkalemia (principal)
CPT/HCPCS: 36415; 84132

== ENCOUNTER → 2021-06-22 13:12 | Outpatient (CLI) | payer MEDICARE, OTHER, SELFPAY ==
[2021-06-22 14:02] LABS: Hematocrit 36.9 % (41-53); Hemoglobin 12.3 g/dL (13.5-17.5)
[2021-06-22 14:27] LABS: BUN Creatinine Ratio 10.5 (6-22); Blood Urea Nitrogen 51 mg/dL (9-20); Calcium 10.2 mg/dL (8.4-10.2); Carbon Dioxide 19 mmol/L (22-32); Chloride 105 mmol/L (98-107); Estimated Glomerular Filt Rate 11.7 mL/min (>60); Glucose 159 mg/dL (80-110); HEMOLYSIS < 15 (0-50); Potassium 4.8 mmol/L (3.4-5.1); Sodium 140 mmol/L (137-145)
== END ==
PROVIDERS: PCP Family Medicine; Referring Provider Student in an Organized Health Care Education/Training Program; Visit Provider Student in an Organized Health Care Education/Training Program
DX: N05.9 Unspecified nephritic syndrome with unspecified morphologic changes (principal); D64.9 Anemia, unspecified
CPT/HCPCS: 36415; 80048; 85014; 85018

== ENCOUNTER → 2021-07-26 13:17 | Outpatient (CLI) | payer MEDICARE, OTHER, SELFPAY ==
[2021-07-26 14:16] LABS: BUN Creatinine Ratio 9.8 (6-22); Blood Urea Nitrogen 47 mg/dL (9-20); Calcium 10.3 mg/dL (8.4-10.2); Carbon Dioxide 21 mmol/L (22-32); Chloride 108 mmol/L (98-107); Estimated Glomerular Filt Rate 11.8 mL/min (>60); Glucose 181 mg/dL (80-110); HEMOLYSIS < 15 (0-50); Potassium 4.7 mmol/L (3.4-5.1); Sodium 141 mmol/L (137-145)
[2021-07-26 20:38] LABS: Hematocrit 36.9 % (41-53); Hemoglobin 12.5 g/dL (13.5-17.5)
[2021-07-27 05:15] LABS: Fructosamine 272 umol/L (0-285)
== END ==
PROVIDERS: PCP Family Medicine; Referring Provider Student in an Organized Health Care Education/Training Program; Visit Provider Student in an Organized Health Care Education/Training Program
DX: Z79.4 Long term (current) use of insulin (principal); N05.9 Unspecified nephritic syndrome with unspecified morphologic changes; D64.9 Anemia, unspecified; E11.22 Type 2 diabetes mellitus with diabetic chronic kidney disease; N18.5 Chronic kidney disease, stage 5
CPT/HCPCS: 36415; 80048; 82985; 85014; 85018

== ENCOUNTER → 2021-09-07 12:18 | Outpatient (CLI) | payer MEDICARE, OTHER, SELFPAY ==
[2021-09-07 13:16] LABS: Hematocrit 36.3 % (41-53); Hemoglobin 12.2 g/dL (13.5-17.5)
[2021-09-07 13:22] LABS: INR 1.1 (0.9-1.3); Prothrombin Time 12.1 SECONDS (10.1-12.7)
[2021-09-07 13:37] LABS: BUN Creatinine Ratio 11.8 (6-22); Blood Urea Nitrogen 57 mg/dL (9-20); Calcium 10.1 mg/dL (8.4-10.2); Carbon Dioxide 22 mmol/L (22-32); Chloride 107 mmol/L (98-107); Estimated Glomerular Filt Rate 11.7 mL/min (>60); Glucose 95 mg/dL (80-110); HEMOLYSIS < 15 (0-50); Potassium 4.7 mmol/L (3.4-5.1); Sodium 139 mmol/L (137-145)
== END ==
PROVIDERS: PCP Family Medicine; Referring Provider Student in an Organized Health Care Education/Training Program; Visit Provider Student in an Organized Health Care Education/Training Program
DX: N05.9 Unspecified nephritic syndrome with unspecified morphologic changes (principal); D64.9 Anemia, unspecified; N25.81 Secondary hyperparathyroidism of renal origin
CPT/HCPCS: 36415; 80048; 85014; 85018; 85610

== ENCOUNTER → 2021-10-18 10:00 | Outpatient (CLI) | payer MEDICARE, OTHER, SELFPAY ==
[2021-10-18 10:43] LABS: Hemoglobin 12.2 g/dL (13.5-17.5)
[2021-10-18 11:04] LABS: BUN Creatinine Ratio 10.2 (6-22); Blood Urea Nitrogen 52 mg/dL (9-20); Carbon Dioxide 23 mmol/L (22-32); Chloride 106 mmol/L (98-107); Estimated Glomerular Filt Rate 11.1 mL/min (>60); Glucose 115 mg/dL (80-110); HEMOLYSIS < 15 (0-50); Potassium 4.7 mmol/L (3.4-5.1); Sodium 141 mmol/L (137-145)
[2021-10-19 08:53] LABS: Parathyroid Hormone Int 263 pg/mL (15-65)
== END ==
PROVIDERS: PCP Family Medicine; Referring Provider Student in an Organized Health Care Education/Training Program; Visit Provider Student in an Organized Health Care Education/Training Program
DX: N05.9 Unspecified nephritic syndrome with unspecified morphologic changes (principal); D64.9 Anemia, unspecified; N25.81 Secondary hyperparathyroidism of renal origin
CPT/HCPCS: 36415; 80048; 83970; 85018

== ENCOUNTER → 2021-11-26 14:18 | Outpatient (CLI) | payer MEDICARE, OTHER, SELFPAY ==
[2021-11-26 14:46] LABS: BUN Creatinine Ratio 10.4 (6-22); Blood Urea Nitrogen 53 mg/dL (9-20); Calcium 9.7 mg/dL (8.4-10.2); Carbon Dioxide 19 mmol/L (22-32); Chloride 108 mmol/L (98-107); Estimated Glomerular Filt Rate 11 mL/min (>60); Glucose 139 mg/dL (80-110); HEMOLYSIS < 15 (0-50); Potassium 4.7 mmol/L (3.4-5.1); Sodium 141 mmol/L (137-145)
[2021-11-26 14:50] LABS: Hemoglobin 13.1 g/dL (13.5-17.5)
== END ==
PROVIDERS: PCP Family Medicine; Referring Provider Student in an Organized Health Care Education/Training Program; Visit Provider Student in an Organized Health Care Education/Training Program
DX: N05.9 Unspecified nephritic syndrome with unspecified morphologic changes (principal); D64.9 Anemia, unspecified
CPT/HCPCS: 36415; 80048; 85014; 85018

== ENCOUNTER → 2021-12-28 12:58 | Outpatient (CLI) | payer MEDICARE, OTHER, SELFPAY ==
[2021-12-28 13:20] LABS: Hematocrit 36.1 % (41-53); Hemoglobin 12.4 g/dL (13.5-17.5)
[2021-12-28 13:29] LABS: BUN Creatinine Ratio 13.3 (6-22); Blood Urea Nitrogen 57 mg/dL (9-20); Calcium 9.6 mg/dL (8.4-10.2); Carbon Dioxide 22 mmol/L (22-32); Chloride 107 mmol/L (98-107); Estimated Glomerular Filt Rate 13 mL/min (>60); Glucose 137 mg/dL (80-110); HEMOLYSIS < 15 (0-50); Potassium 4.9 mmol/L (3.4-5.1); Sodium 141 mmol/L (137-145)
[2021-12-29 07:33] LABS: Parathyroid Hormone Int 317 pg/mL (15-65)
== END ==
PROVIDERS: PCP Family Medicine; Referring Provider Student in an Organized Health Care Education/Training Program; Visit Provider Student in an Organized Health Care Education/Training Program
DX: N05.9 Unspecified nephritic syndrome with unspecified morphologic changes (principal); D64.9 Anemia, unspecified; N25.81 Secondary hyperparathyroidism of renal origin
CPT/HCPCS: 36415; 80048; 83970; 85014; 85018

== ENCOUNTER → 2022-01-25 13:41 | Outpatient (CLI) | payer MEDICARE, OTHER, SELFPAY ==
[2022-01-25 14:06] LABS: Hematocrit 35.9 % (41-53); Hemoglobin 12.3 g/dL (13.5-17.5)
[2022-01-26 01:10] LABS: BUN Creatinine Ratio 12.8 (6-22); Blood Urea Nitrogen 55 mg/dL (9-20); Calcium 9.6 mg/dL (8.4-10.2); Carbon Dioxide 19 mmol/L (22-32); Chloride 109 mmol/L (98-107); Estimated Glomerular Filt Rate 13 mL/min (>60); Glucose 121 mg/dL (80-110); HEMOLYSIS < 15 (0-50); Potassium 5.2 mmol/L (3.4-5.1); Sodium 140 mmol/L (137-145)
[2022-01-26 07:25] LABS: Parathyroid Hormone Int 284 pg/mL (15-65)
== END ==
PROVIDERS: PCP Family Medicine; Referring Provider Student in an Organized Health Care Education/Training Program; Visit Provider Student in an Organized Health Care Education/Training Program
DX: N05.9 Unspecified nephritic syndrome with unspecified morphologic changes (principal); D64.9 Anemia, unspecified; N25.81 Secondary hyperparathyroidism of renal origin
CPT/HCPCS: 36415; 80048; 83970; 85014; 85018

== ENCOUNTER → 2022-02-04 12:04 | Outpatient (CLI) | payer MEDICARE, OTHER, SELFPAY ==
[2022-02-04 13:27] LABS: HEMOLYSIS < 15 (0-50); Potassium 4.5 mmol/L (3.4-5.1)
== END ==
PROVIDERS: PCP Family Medicine; Referring Provider Student in an Organized Health Care Education/Training Program; Visit Provider Student in an Organized Health Care Education/Training Program
DX: E87.5 Hyperkalemia (principal)
CPT/HCPCS: 36415; 84132

== ENCOUNTER → 2022-03-01 13:31 | Outpatient (CLI) | payer MEDICARE, OTHER, SELFPAY ==
[2022-03-01 13:52] LABS: Hematocrit 36.9 % (41-53); Hemoglobin 12.5 g/dL (13.5-17.5)
[2022-03-01 14:25] LABS: BUN Creatinine Ratio 14.1 (6-22); Blood Urea Nitrogen 66 mg/dL (9-20); Calcium 9.6 mg/dL (8.4-10.2); Carbon Dioxide 21 mmol/L (22-32); Chloride 106 mmol/L (98-107); Estimated Glomerular Filt Rate 12 mL/min (>60); Glucose 125 mg/dL (80-110); HEMOLYSIS < 15 (0-50); Potassium 4.8 mmol/L (3.4-5.1); Sodium 139 mmol/L (137-145)
== END ==
PROVIDERS: PCP Family Medicine; Referring Provider Student in an Organized Health Care Education/Training Program; Visit Provider Student in an Organized Health Care Education/Training Program
DX: N05.9 Unspecified nephritic syndrome with unspecified morphologic changes (principal); D64.9 Anemia, unspecified
CPT/HCPCS: 36415; 80048; 85014; 85018

== ENCOUNTER → 2022-04-19 13:25 | Outpatient (CLI) | payer MEDICARE, OTHER, SELFPAY ==
[2022-04-19 14:08] LABS: Hematocrit 36.4 % (41-53); Hemoglobin 12.4 g/dL (13.5-17.5)
[2022-04-19 14:50] LABS: BUN Creatinine Ratio 13.2 (6-22); Blood Urea Nitrogen 66 mg/dL (9-20); Calcium 9.7 mg/dL (8.4-10.2); Carbon Dioxide 21 mmol/L (22-32); Chloride 106 mmol/L (98-107); Estimated Glomerular Filt Rate 11 mL/min (>60); Glucose 144 mg/dL (80-110); HEMOLYSIS < 15 (0-50); Potassium 4.5 mmol/L (3.4-5.1); Sodium 138 mmol/L (137-145)
[2022-04-20 06:29] LABS: Parathyroid Hormone Int 500 pg/mL (15-65)
== END ==
PROVIDERS: PCP Family Medicine; Referring Provider Student in an Organized Health Care Education/Training Program; Visit Provider Student in an Organized Health Care Education/Training Program
DX: N05.9 Unspecified nephritic syndrome with unspecified morphologic changes (principal); D64.9 Anemia, unspecified; N25.81 Secondary hyperparathyroidism of renal origin
CPT/HCPCS: 36415; 80048; 83970; 85014; 85018

== ENCOUNTER → 2022-06-01 09:53 | Outpatient (CLI) | payer MEDICARE, OTHER, SELFPAY ==
[2022-06-01 11:28] LABS: Hematocrit 35.4 % (41-53); Hemoglobin 11.8 g/dL (13.5-17.5)
[2022-06-01 11:51] LABS: BUN Creatinine Ratio 11.2 (6-22); Blood Urea Nitrogen 56 mg/dL (9-20); Calcium 9.2 mg/dL (8.4-10.2); Carbon Dioxide 21 mmol/L (22-32); Chloride 103 mmol/L (98-107); Estimated Glomerular Filt Rate 11 mL/min (>60); Glucose 161 mg/dL (80-110); HEMOLYSIS < 15 (0-50); Potassium 4.1 mmol/L (3.4-5.1); Sodium 142 mmol/L (137-145)
== END ==
PROVIDERS: PCP Family Medicine; Referring Provider Student in an Organized Health Care Education/Training Program; Visit Provider Student in an Organized Health Care Education/Training Program
DX: N05.9 Unspecified nephritic syndrome with unspecified morphologic changes (principal); D64.9 Anemia, unspecified
CPT/HCPCS: 36415; 80048; 85014; 85018

== ENCOUNTER → 2022-07-11 14:57 | Outpatient (CLI) | payer MEDICARE, OTHER, SELFPAY ==
[2022-07-11 15:58] LABS: Hematocrit 37.4 % (41-53); Hemoglobin 12.4 g/dL (13.5-17.5)
[2022-07-11 16:15] LABS: BUN Creatinine Ratio 11.7 (6-22); Blood Urea Nitrogen 60 mg/dL (9-20); Calcium 9.4 mg/dL (8.4-10.2); Carbon Dioxide 20 mmol/L (22-32); Chloride 105 mmol/L (98-107); Estimated Glomerular Filt Rate 11 mL/min (>60); Glucose 163 mg/dL (80-110); HEMOLYSIS < 15 (0-50); Potassium 4.9 mmol/L (3.4-5.1); Sodium 140 mmol/L (137-145)
== END ==
PROVIDERS: PCP Family Medicine; Referring Provider Student in an Organized Health Care Education/Training Program; Visit Provider Student in an Organized Health Care Education/Training Program
DX: N05.9 Unspecified nephritic syndrome with unspecified morphologic changes (principal); D64.9 Anemia, unspecified
CPT/HCPCS: 36415; 80048; 85014; 85018

== ENCOUNTER → 2022-07-19 11:31 | Outpatient (CLI) | payer MEDICARE, OTHER, SELFPAY ==
[2022-07-19 13:22] LABS: TSH w/ Reflex to FT4 0.57 uIU/mL (0.47-4.68)
[2022-07-19 15:49] LABS: Hemoglobin A1C% w Est Avg Glu 5.5 % (4.0-6.0)
[2022-07-19 16:24] LABS: Alanine Aminotransferase 24 IU/L (<50); Albumin 4.2 g/dL (3.5-5.0); Albumin Globulin Ratio 1.4 (1.0-2.8); Alkaline Phosphatase 127 U/L (38-126); Aspartate Aminotransferase 22 IU/L (17-59); Bilirubin Total 0.8 mg/dL (0.2-1.3); Bilirubin Unconjugated 0.6 mg/dL (0.0-1.1); Cholesterol 142 mg/dL (140-199); Globulin 2.9 g/dL (1.7-4.1); HDL Cholesterol 33 mg/dL (40-60); HEMOLYSIS < 15 (0-50); LDL Cholesterol Calculated 86 mg/dL (<100); Total Protein 7.1 g/dL (6.3-8.2); Triglycerides 114 mg/dL (35-150)
== END ==
PROVIDERS: Physician Assistant; PCP Family Medicine; Referring Provider Family Medicine; Visit Provider Family Medicine
DX: E11.22 Type 2 diabetes mellitus with diabetic chronic kidney disease (principal); E78.2 Mixed hyperlipidemia; N18.5 Chronic kidney disease, stage 5; Z79.4 Long term (current) use of insulin; E03.9 Hypothyroidism, unspecified
CPT/HCPCS: 36415; 80061; 80076; 83036; 84443; 84550

== ENCOUNTER → 2022-08-22 13:54 | Outpatient (CLI) | payer MEDICARE, OTHER, SELFPAY ==
[2022-08-22 16:07] LABS: Hematocrit 37.3 % (41-53); Hemoglobin 12.7 g/dL (13.5-17.5)
[2022-08-22 16:57] LABS: BUN Creatinine Ratio 12.4 (6-22); Blood Urea Nitrogen 56 mg/dL (9-20); Calcium 9.9 mg/dL (8.4-10.2); Carbon Dioxide 20 mmol/L (22-32); Chloride 102 mmol/L (98-107); Estimated Glomerular Filt Rate 13 mL/min (>60); Glucose 127 mg/dL (80-110); HEMOLYSIS < 15 (0-50); Sodium 139 mmol/L (137-145)
== END ==
PROVIDERS: PCP Family Medicine; Referring Provider Student in an Organized Health Care Education/Training Program; Visit Provider Student in an Organized Health Care Education/Training Program
DX: N05.9 Unspecified nephritic syndrome with unspecified morphologic changes (principal); D64.9 Anemia, unspecified
CPT/HCPCS: 36415; 80048; 85014; 85018

== ENCOUNTER → 2022-10-04 14:42 | Outpatient (CLI) | payer MEDICARE, OTHER, SELFPAY ==
[2022-10-04 15:50] LABS: Hematocrit 35.4 % (41-53); Hemoglobin 11.6 g/dL (13.5-17.5)
[2022-10-04 16:05] LABS: BUN Creatinine Ratio 12.2 (6-22); Blood Urea Nitrogen 63 mg/dL (9-20); Calcium 9.6 mg/dL (8.4-10.2); Carbon Dioxide 19 mmol/L (22-32); Chloride 104 mmol/L (98-107); Estimated Glomerular Filt Rate 11 mL/min (>60); Glucose 143 mg/dL (80-110); HEMOLYSIS < 15 (0-50); Potassium 4.6 mmol/L (3.4-5.1); Sodium 142 mmol/L (137-145)
[2022-10-05 07:09] LABS: Parathyroid Hormone Int 522 pg/mL (15-65)
== END ==
PROVIDERS: PCP Family Medicine; Referring Provider Student in an Organized Health Care Education/Training Program; Visit Provider Student in an Organized Health Care Education/Training Program
DX: N05.9 Unspecified nephritic syndrome with unspecified morphologic changes (principal); D64.9 Anemia, unspecified; N25.81 Secondary hyperparathyroidism of renal origin
CPT/HCPCS: 36415; 80048; 83970; 85014; 85018

== ENCOUNTER → 2022-11-18 14:37 | Outpatient (CLI) | payer MEDICARE, OTHER, SELFPAY ==
[2022-11-18 15:32] LABS: Hematocrit 34.8 % (41-53); Hemoglobin 11.8 g/dL (13.5-17.5)
[2022-11-18 16:53] LABS: BUN Creatinine Ratio 11.3 (6-22); Blood Urea Nitrogen 57 mg/dL (9-20); Calcium 9.5 mg/dL (8.4-10.2); Carbon Dioxide 22 mmol/L (22-32); Chloride 101 mmol/L (98-107); Estimated Glomerular Filt Rate 11 mL/min (>60); Glucose 141 mg/dL (80-110); HEMOLYSIS < 15 (0-50); Potassium 4.5 mmol/L (3.4-5.1); Sodium 139 mmol/L (137-145)
[2022-11-22 08:42] LABS: Parathyroid Hormone Int 403 pg/mL (15-65)
== END ==
PROVIDERS: PCP Family Medicine; Referring Provider Student in an Organized Health Care Education/Training Program; Visit Provider Student in an Organized Health Care Education/Training Program
DX: N05.9 Unspecified nephritic syndrome with unspecified morphologic changes (principal); D64.9 Anemia, unspecified; N25.81 Secondary hyperparathyroidism of renal origin
CPT/HCPCS: 36415; 80048; 83970; 85014; 85018

== ENCOUNTER → 2022-12-26 15:33 | Outpatient (CLI) | payer MEDICARE, OTHER, SELFPAY ==
[2022-12-26 16:26] LABS: Hematocrit 32.8 % (41-53); Hemoglobin 11.1 g/dL (13.5-17.5)
[2022-12-26 16:38] LABS: BUN Creatinine Ratio 12.1 (6-22); Blood Urea Nitrogen 70 mg/dL (9-20); Calcium 9.5 mg/dL (8.4-10.2); Carbon Dioxide 21 mmol/L (22-32); Chloride 102 mmol/L (98-107); Estimated Glomerular Filt Rate 9 mL/min (>60); Glucose 104 mg/dL (80-110); HEMOLYSIS < 15 (0-50); Potassium 4.9 mmol/L (3.4-5.1); Sodium 138 mmol/L (137-145)
== END ==
PROVIDERS: PCP Family Medicine; Referring Provider Student in an Organized Health Care Education/Training Program; Visit Provider Student in an Organized Health Care Education/Training Program
DX: N05.9 Unspecified nephritic syndrome with unspecified morphologic changes (principal); D64.9 Anemia, unspecified
CPT/HCPCS: 36415; 80048; 85014; 85018

== ENCOUNTER → 2023-02-14 12:49 | Outpatient (CLI) | payer MEDICARE, OTHER, SELFPAY ==
[2023-02-14 13:50] LABS: Hematocrit 34.8 % (41-53); Hemoglobin 11.8 g/dL (13.5-17.5)
[2023-02-14 14:16] LABS: Alanine Aminotransferase 20 IU/L (<50); Albumin 4.3 g/dL (3.5-5.0); Albumin Globulin Ratio 1.7 (1.0-2.8); Alkaline Phosphatase 120 U/L (38-126); Aspartate Aminotransferase 22 IU/L (17-59); BUN Creatinine Ratio 11.6 (6-22); Bilirubin Total 0.8 mg/dL (0.2-1.3); Blood Urea Nitrogen 65 mg/dL (9-20); Calcium 9.7 mg/dL (8.4-10.2); Carbon Dioxide 23 mmol/L (22-32); Chloride 104 mmol/L (98-107); Cholesterol 129 mg/dL (140-199); Estimated Glomerular Filt Rate 10 mL/min (>60); Globulin 2.6 g/dL (1.7-4.1); Glucose 103 mg/dL (80-110); HDL Cholesterol 41 mg/dL (40-60); HEMOLYSIS < 15 (0-50); LDL Cholesterol Calculated 67 mg/dL (<100); Potassium 4.6 mmol/L (3.4-5.1); Sodium 140 mmol/L (137-145); Total Protein 6.9 g/dL (6.3-8.2); Triglycerides 105 mg/dL (35-150)
[2023-02-14 16:26] LABS: Creatinine Urine Random 42.2 mg/dL
[2023-02-14 16:31] LABS: Microalbumi Creatinin Ratio Ur 227.4 ug/mg CR (<30); Microalbumin Urine Random 9.6 mg/dL (0-1.6)
[2023-02-15 08:39] LABS: Fructosamine 273 umol/L (0-285); Parathyroid Hormone Int 523 pg/mL (15-65)
== END ==
PROVIDERS: PCP Family Medicine; Referring Provider Internal Medicine Endocrinology, Diabetes & Metabolism; Visit Provider Student in an Organized Health Care Education/Training Program
DX: N25.81 Secondary hyperparathyroidism of renal origin (principal); E11.22 Type 2 diabetes mellitus with diabetic chronic kidney disease; N05.9 Unspecified nephritic syndrome with unspecified morphologic changes; D64.9 Anemia, unspecified; N18.5 Chronic kidney disease, stage 5; Z79.4 Long term (current) use of insulin
CPT/HCPCS: 36415; 80053; 80061; 82043; 82570; 82985; 83970; 85014; 85018

== ENCOUNTER → 2023-03-06 14:11 | Outpatient (CLI) | payer MEDICARE, OTHER, SELFPAY ==
--- NOTE | 2023-03-06 14:12 | DI.RAD.S_ITS ---
PROCEDURE: XR SHOULDER LT MIN 2V INDICATIONS: Fell, pain upper humerus and AC joint TECHNIQUE: 3 views of the shoulder were acquired. COMPARISON: None. FINDINGS: Bones: No fractures or dislocations. No suspicious bony lesions. Moderate osteoarthritic changes in acromioclavicular and glenohumeral joint. Visualized ribs appear intact. Soft tissues: No suspicious soft tissue calcifications. IMPRESSION: Moderate osteoarthritis. Dictated by: Cresencio Martel M.D. on 03/06/2023 at 16:39 Approved by: Cresencio Martel M.D. on 03/06/2023 at 16:39
== END ==
PROVIDERS: PCP Family Medicine; Referring Provider Physician Assistant; Visit Provider Physician Assistant
DX: M19.012 Primary osteoarthritis, left shoulder (principal); M25.512 Pain in left shoulder
CPT/HCPCS: 73030

== ENCOUNTER → 2023-03-28 13:47 | Outpatient (CLI) | payer MEDICARE, OTHER, SELFPAY ==
[2023-03-28 14:54] LABS: Hematocrit 33.4 % (41-53); Hemoglobin 11.5 g/dL (13.5-17.5)
[2023-03-28 15:24] LABS: BUN Creatinine Ratio 13.7 (6-22); Blood Urea Nitrogen 74 mg/dL (9-20); Calcium 10.1 mg/dL (8.4-10.2); Carbon Dioxide 19 mmol/L (22-32); Chloride 107 mmol/L (98-107); Estimated Glomerular Filt Rate 10 mL/min (>60); Glucose 112 mg/dL (80-110); HEMOLYSIS < 15 (0-50); Sodium 139 mmol/L (137-145)
== END ==
PROVIDERS: PCP Family Medicine; Referring Provider Student in an Organized Health Care Education/Training Program; Visit Provider Student in an Organized Health Care Education/Training Program
DX: N05.9 Unspecified nephritic syndrome with unspecified morphologic changes (principal); D64.9 Anemia, unspecified
CPT/HCPCS: 36415; 80048; 85014; 85018